=== PATIENT | male | born 1955 | race Caucasian/White ===

== ENCOUNTER → 2017-11-01 08:02 | Outpatient (CLI) | payer OTHER, SELFPAY ==
[2017-11-01 08:50] LABS: Add Manual Diff / Slide Review NO; Basophils Percent Auto 0.8 % (0-2); Hematocrit 45.3 % (41-53); Hemoglobin 15.8 g/dL (13.5-17.5); Lymphocytes Percent Auto 24.1 % (25-40); Mean Corpuscular HGB Conc 34.8 % (30-36); Mean Corpuscular Hemoglobin 32.1 PG (26-34); Mean Corpuscular Volume 92.3 fL (80-100); Monocytes Percent Auto 8.1 % (3-14); Neutrophils Absolute Auto 5400 /uL (3000-5900); Platelet Count 226 X10^3/uL (150-400); Red Blood Cell Count 4.91 X10^6/uL (4.5-5.9); Red Cell Distribution Width 13.5 % (11.6-14.8); White Blood Cell Count 8.6 X10^3/uL (4.5-11.0)
[2017-11-01 09:07] LABS: BUN Creatinine Ratio 33.8 (6-22); Blood Urea Nitrogen 27 mg/dL (9-20); Calcium 9.4 mg/dL (8.4-10.2); Carbon Dioxide 25 mmol/L (22-32); Chloride 98 mmol/L (98-107); Estimated Glomerular Filt Rate > 60.0 mL/min (>60); Glucose 305 mg/dL (80-110); HEMOLYSIS 23 (0-50); Potassium 4.3 mmol/L (3.4-5.1); Sodium 136 mmol/L (137-145)
[2017-11-01 09:14] LABS: Hemoglobin A1C% w Est Avg Glu 9.4 % (4.0-6.0)
== END ==
PROVIDERS: Visit Provider Orthopaedic Surgery Orthopaedic Surgery of the Spine
DX: M48.061 Spinal stenosis, lumbar region without neurogenic claudication (principal); Z01.818 Encounter for other preprocedural examination
CPT/HCPCS: 36415; 80048; 83036; 85025; 93005

== ENCOUNTER → 2017-12-01 08:01 | Outpatient (CLI) | payer OTHER, SELFPAY ==
[2017-12-01 09:55] LABS: Add Manual Diff / Slide Review NO; Basophils Percent Auto 0.5 % (0-2); Eosinophils Percent Auto 4.4 % (2-4); Hematocrit 43.9 % (41-53); Hemoglobin 15.2 g/dL (13.5-17.5); Lymphocytes Percent Auto 20.1 % (25-40); Mean Corpuscular HGB Conc 34.6 % (30-36); Mean Corpuscular Hemoglobin 31.9 PG (26-34); Neutrophils Absolute Auto 6200 /uL (3000-5900); Platelet Count 252 X10^3/uL (150-400); Red Blood Cell Count 4.78 X10^6/uL (4.5-5.9); Red Cell Distribution Width 13.7 % (11.6-14.8); White Blood Cell Count 9.5 X10^3/uL (4.5-11.0)
[2017-12-01 10:31] LABS: BUN Creatinine Ratio 42.5 (6-22); Blood Urea Nitrogen 51 mg/dL (9-20); Calcium 9.3 mg/dL (8.4-10.2); Carbon Dioxide 30 mmol/L (22-32); Chloride 96 mmol/L (98-107); Estimated Glomerular Filt Rate > 60.0 mL/min (>60); Glucose 124 mg/dL (80-110); HEMOLYSIS < 15 (0-50); Potassium 4.5 mmol/L (3.4-5.1); Sodium 139 mmol/L (137-145)
[2017-12-01 13:52] LABS: Hemoglobin A1C% w Est Avg Glu 9.1 % (4.0-6.0)
== END ==
PROVIDERS: Visit Provider Orthopaedic Surgery Orthopaedic Surgery of the Spine
DX: M47.26 Other spondylosis with radiculopathy, lumbar region (principal)
CPT/HCPCS: 36415; 80048; 83036; 85025

== ENCOUNTER → 2017-12-20 09:55 | Outpatient (CLI) | payer OTHER, SELFPAY ==
[2017-12-20 10:01] LABS: Bacteria Urine None Seen; RBC Urine None Seen (0-5/HPF); WBC Urine None Seen (0-5/HPF)
[2017-12-20 10:58] LABS: Appearance Urine UA CLEAR; Bilirubin Urine UA NEGATIVE (NEGATIVE); Color Urine UA YELLOW; Glucose Urine UA NEGATIVE (Normal); Ketones Urine UA NEGATIVE (NEGATIVE); Leukocyte Esterase Urine UA NEGATIVE (NEGATIVE); Nitrite Urine UA Negative (Negative); Occult Blood Urine UA NEGATIVE (Negative); Protein Urine UA NEGATIVE (Negative); Urobilinogen Urine UA 0.2 E.U./dL (0.2)
[2017-12-20 11:22] LABS: Culture Indicated Urine Cult Not Indicated; Urine Comments Microscopic Normal
== END ==
PROVIDERS: Referring Provider Family Medicine; Visit Provider Orthopaedic Surgery Orthopaedic Surgery of the Spine
DX: M47.26 Other spondylosis with radiculopathy, lumbar region (principal)
CPT/HCPCS: 36415; 81001; 83036

== ENCOUNTER 2018-01-10 06:15 | Inpatient (IN) | payer OTHER, SELFPAY ==
[2017-12-31 13:45] VITALS: BMI 41.6
[2017-12-31 14:31] VITALS: BMI 39.1
[2018-01-10] VITALS (15 sets, daily range): BP systolic 101–143; BP diastolic 40–91; PULSE 67–89; RESP 8–20; TEMP 36–37.2; O2SAT 92–97; BMI 39.1
[2018-01-10] MEDS: LACTATED RINGERS 1,000 ML 42 ML IV (07:20)
[2018-01-10] MEDS: CEFAZOLIN 2 GM/100 ML FROZ.PIGGY IV ×2 (08:14→16:08)
--- NOTE | 2018-01-10 08:40 | SUR.OPER ---
Prone on spine table, head in foam head support, padded chest and pelvic supports, gel pad at knees, lower legs supported by pillows; nipples, genitalia and toes free of pressure, arms secured on foam padded arm boards at <90 degrees abduction. Tape over blanket at thigh secured to table.
[2018-01-10] MEDS: BUPIVACAINE 0.25% W/ EPI VIAL 50 ML INJ (09:04)
[2018-01-10] MEDS: BUPIVACAINE LIPOSOME 266 MG/20 ML VIAL INJ (09:05)
--- NOTE | 2018-01-10 10:08 | SUR.OPER ---
1007 CBG taken in the OR =132. Anesthesia aware.
--- NOTE | 2018-01-10 11:09 | PM.OP.1 ---
Operative Date/Time/Diagnoses Date of procedure: 01/10/18 Time of procedure: 08:09 Pre-op diagnosis: 1. L5-S1 spondylolisthesis 2. L4-5, L5-S1 spinal stenosis 3. L4-5, L5-S1 spondylosis with radiculopathy Post-op diagnosis: same Procedure & Clinicians Procedure: 1. L5-S1 Postero-lateral and posterior interbody fusion 2. L5-S1 interbody cage placement. 3. L5-S1 decompressive laminectomy with bilateral facetecomies 4. L5-S1 Posterior non-segmental instrumentation 5. L4-5 left hemilaminectomy 6. [place] of bone marrow from iliac crest 7. Utilization of microsurgical technique and operating microscope Same procedure as scheduled: Yes Indications: Patient has been having chronic back pain and worsening lumbar radiculopathy. Patient failed multiple conservative management with worsening pain weakness and numbness in her lower extremity. Patient has been having difficulty performing activity of daily living. After discussing risks benefits of treatment options, patient elected proceed with surgery. Surgeon: Dameon Holm Breaker Layer: Chica Pringle Click Yes if Unassisted: No Anesthesia Type: General Operative Notes Closure Type: primary Specimen(s): none sent Implants & Drains: Globus revolve and Rise cage Applied: catheter Estimated Blood Loss (mL): 50 Blood products transfused: none Procedure in detail: Patient was seen in the preoperative area. Risks and benefits of the surgery was discussed with the patient. Informed consent was obtained from the patient and placed in the chart. Surgical site was marked. Patient was taken to the operative room. General anesthesia was administered. Prophylactic antibiotic was given to the patient less than 30 min before the incision was made. Patient was placed into a prone position on the Johnson table. Patient's back was then prepped and draped in the sterile fashion. Time-out was performed at this time. Using AP and lateral C-arm imaging the interval between L4-5 L5-S1 was identified and marked on patient's back. A 2 inch incision 2 in from midline was made on the left side first. The fascia was incised in line with skin incision. Globus MARS retractors was placed inside the incision and docked onto the L5 lamina. Using microsurgical technique and operating microscope, a L5 laminectomy and L5-S1 facetectomy was performed using a Kerrison rongeur. The disc space at L5-S1 was identified. And a total diskectomy was performed at L5-S1 level. The endplates were decorticated using a rasp and shaver. The total diskectomy and decortication was performed at L5-S1 level in order to to accomplish a L5-S1 fusion. The local bone from the laminectomy and facetectomy was saved for local bone grafting. After the total diskectomy and decortication was completed, Globus viacell bone graft material was combined with local bone that was harvested earlier. At this time, a separate skin is incision was made over the iliac crest. A Jamshidi needle was inserted into the iliac crest through a separate skin incision. 5 cc of bone marrow aspiration was obtained through the separate skin incision using a Jamshidi needle from the iliac crest. The bone marrow aspiration was combined with local bone and the via cell bone grafting material. The bone grafting material was placed into the L5-S1 interbody space along with a expandable cage. The cage was expanded to its maximum height using the torque limiting screwdriver. At this time the MARS retractor was redirected over the L4 lamina. Using microsurgical technique and operating microscope, a L4 heminectomy was performed using the Kerrison rongeur. The ligamentum flavum was also resected at the side of the hemilaminectomy for further decompression of the epidural space. At this time a mirror image incision was made on the right side. The fascia was incised in line with the skin incision. Globus MARS retractor was inserted and docked onto the L5-S1 posterolateral gutter. Using the power drill, posterior-lateral decortication was performed at L5-S1 level until bleeding cortical bone was identified. The remaining bone grafting material was placed into the L5-S1 posterior lateral gutter he order to accomplish posterolateral fusion at the L5-S1 level. Using the double C-arm technique, pedicle screws were placed into the L5 and S1 pedicles bilaterally. This was done by placing the Jamshidi needle into the pedicles, then placing the guidewires over the Jamshidi needle, and finally placing the cannulated screws over the guidewires bilaterally. After the pedicle screws were placed, 2 titanium rods was locked into the heads of the pedicle screws using locking caps and torque limiting screwdriver. After all the hardware was placed, and confirmed with AP and lateral C-arm imaging, the wound was then irrigated with sterile normal saline and packed with Ray-Jj gauze for 3 min to accomplish hemostasis. After the gauze was removed the deep fascia was closed with #1 Vicryl suture. The subcutaneous layer was closed with 2-0 Vicryl. The skin was closed with skin cathryn. Patient tolerated the procedure well. There were no complications. Complications: none
--- NOTE | 2018-01-10 11:15 | P.OP_ITS ---
Operative Date/Time/Diagnoses Date of procedure: 01/10/18 Time of procedure: 08:09 Pre-op diagnosis: 1. L5-S1 spondylolisthesis 2. L4-5, L5-S1 spinal stenosis 3. L4-5, L5-S1 spondylosis with radiculopathy Post-op diagnosis: same Procedure & Clinicians Procedure: 1. L5-S1 Postero-lateral and posterior interbody fusion 2. L5-S1 interbody cage placement. 3. L5-S1 decompressive laminectomy with bilateral facetecomies 4. L5-S1 Posterior non-segmental instrumentation 5. L4-5 left hemilaminectomy 6. [place] of bone marrow from iliac crest 7. Utilization of microsurgical technique and operating microscope Same procedure as scheduled: Yes Indications: Patient has been having chronic back pain and worsening lumbar radiculopathy. Patient failed multiple conservative management with worsening pain weakness and numbness in her lower extremity. Patient has been having difficulty performing activity of daily living. After discussing risks benefits of treatment options, patient elected proceed with surgery. Surgeon: Dameon Holm Manifold Builder: Chica Pringle Click Yes if Unassisted: No Anesthesia Type: General Operative Notes Closure Type: primary Specimen(s): none sent Implants & Drains: Globus revolve and Rise cage Applied: catheter Estimated Blood Loss (mL): 50 Blood products transfused: none Procedure in detail: Patient was seen in the preoperative area. Risks and benefits of the surgery was discussed with the patient. Informed consent was obtained from the patient and placed in the chart. Surgical site was marked. Patient was taken to the operative room. General anesthesia was administered. Prophylactic antibiotic was given to the patient less than 30 min before the incision was made. Patient was placed into a prone position on the Johnson table. Patient's back was then prepped and draped in the sterile fashion. Time- out was performed at this time. Using AP and lateral C-arm imaging the interval between L4-5 L5-S1 was identified and marked on patient's back. A 2 inch incision 2 in from midline was made on the left side first. The fascia was incised in line with skin incision. Globus MARS retractors was placed inside the incision and docked onto the L5 lamina. Using microsurgical technique and operating microscope, a L5 laminectomy and L5-S1 facetectomy was performed using a Kerrison rongeur. The disc space at L5-S1 was identified. And a total diskectomy was performed at L5- S1 level. The endplates were decorticated using a rasp and shaver. The total diskectomy and decortication was performed at L5-S1 level in order to to accomplish a L5-S1 fusion. The local bone from the laminectomy and facetectomy was saved for local bone grafting. After the total diskectomy and decortication was completed, Globus viacell bone graft material was combined with local bone that was harvested earlier. At this time, a separate skin is incision was made over the iliac crest. A Jamshidi needle was inserted into the iliac crest through a separate skin incision. 5 cc of bone marrow aspiration was obtained through the separate skin incision using a Jamshidi needle from the iliac crest. The bone marrow aspiration was combined with local bone and the via cell bone grafting material. The bone grafting material was placed into the L5-S1 interbody space along with a expandable cage. The cage was expanded to its maximum height using the torque limiting screwdriver. At this time the MARS retractor was redirected over the L4 lamina. Using microsurgical technique and operating microscope, a L4 heminectomy was performed using the Kerrison rongeur. The ligamentum flavum was also resected at the side of the hemilaminectomy for further decompression of the epidural space. At this time a mirror image incision was made on the right side. The fascia was incised in line with the skin incision. Globus MARS retractor was inserted and docked onto the L5-S1 posterolateral gutter. Using the power drill, posterior- lateral decortication was performed at L5-S1 level until bleeding cortical bone was identified. The remaining bone grafting material was placed into the L5-S1 posterior lateral gutter he order to accomplish posterolateral fusion at the L5- S1 level. Using the double C-arm technique, pedicle screws were placed into the L5 and S1 pedicles bilaterally. This was done by placing the Jamshidi needle into the pedicles, then placing the guidewires over the Jamshidi needle, and finally placing the cannulated screws over the guidewires bilaterally. After the pedicle screws were placed, 2 titanium rods was locked into the heads of the pedicle screws using locking caps and torque limiting screwdriver. After all the hardware was placed, and confirmed with AP and lateral C-arm imaging, the wound was then irrigated with sterile normal saline and packed with Ray-Jj gauze for 3 min to accomplish hemostasis. After the gauze was removed the deep fascia was closed with #1 Vicryl suture. The subcutaneous layer was closed with 2-0 Vicryl. The skin was closed with skin cathryn. Patient tolerated the procedure well. There were no complications. Complications: none
--- NOTE | 2018-01-10 11:16 | DI.RAD.S_ITS ---
PROCEDURE: XR LUMBAR SPINE 2-3V INDICATIONS: L5-S1 TLIF TECHNIQUE: 2 intraoperative fluoroscopic views of the lumbar spine were acquired. COMPARISON: None. FINDINGS: Bones: AP and lateral fluoroscopic images of lower lumbar spine shows transpedicular fusion of L5 and S1 vertebral bodies with intervertebral metallic spacer placement at L5-S1 level. Grade 1 anterolisthesis of L5 on S1 is seen. No gross acute compression fracture is noted. Soft tissues: Overlying bowel gas pattern is normal. No suspicious soft tissue calcifications. IMPRESSION: Intraoperative fluoroscopic images of lower lumbar spine shows transpedicular fusion of L5 and S1 vertebral bodies. Dictated by: Rodrigo Howard M.D. on 01/10/2018 at 11:32 Approved by: Rodrigo Howard M.D. on 01/10/2018 at 11:34
[2018-01-10] MEDS: fentaNYL 100 MCG/2 ML INJ IV ×2 (11:30→11:54)
--- NOTE | 2018-01-10 11:37 | SUR.PHASEI ---
glucose 168
[2018-01-10] MEDS: SODIUM CHLORIDE 0.9% 1,000 ML 100 ML IV ×2 (12:49→23:18)
[2018-01-10] MEDS: INSULIN ASPART 100 UNIT/ML INSULN PEN SUBCUT ×3 (12:50→20:06)
[2018-01-10] MEDS: OXYCODONE IR 5 MG TABLET 10 MG PO ×2 (12:51→20:00)
--- NOTE | 2018-01-10 13:05 | PC.ADMIT ---
Admission Note: Patient arrived to room 102 from PACU at 1220. Alert and oriented x3. Oxygen sats 95% on 2L NC. Restless in bed stating I just can't get comfortable, requesting to get up. Assisted up to chair, logrolled well with instruction and is now sitting up, reports feeling better. Oxycodone administered for pt report of 4-5/10 pain. Pt ate crackers and water prior to oxycodone and is now eating lunch. Denies nausea. Denies numbness to BLEs, strong pulses. Dressing to mid-back is C/D/I. No void since prior to surgery, urinal at bedside. , Shannan, at bedside. Call light within reach, instructed to use prior to make needs known. The patient,Klaus Mendoza,62 y/o, was given written information regarding hospital policies, unit procedures and contact persons. Patient's smoking status: Current some day smoker. Vital Signs - 8 hr 01/10/18 07:09 01/10/18 11:11 01/10/18 11:16 Temperature 96.9 F L 97.8 F Pulse Rate 79 77 78 Respiratory Rate 20 14 8 L Blood Pressure 143/82 H 118/67 103/60 Pulse Oximetry 95 94 94 01/10/18 11:21 01/10/18 11:36 01/10/18 11:41 Temperature 96.9 F L Pulse Rate 76 77 75 Respiratory Rate 11 L 17 14 Blood Pressure 101/56 L 104/53 L 117/91 H Pulse Oximetry 96 92 95 01/10/18 11:50 01/10/18 12:00 01/10/18 12:10 Temperature 96.8 F L Pulse Rate 86 83 84 Respiratory Rate 13 12 17 Blood Pressure 105/58 L 101/61 121/66 Pulse Oximetry 93 96 97
--- NOTE | 2018-01-10 14:48 | CM.DANOTE ---
Attempted to completed bedside assessment with patient but patient was in surgery during the morning and sleeping in the afternoon. RN requested SW not wake patient. Chart Review: Pre-op notes show that patient resides with his spouse and live in a one floor house. Patient did plan on discharging home with HH. HH agency was not listed. Patient is pending PT/OT eval which will assist SW with further discharge needs. Plan: Pending bedside assessment and PT/OT evals. SW to follow.
--- NOTE | 2018-01-10 15:10 | PM.PREOP ---
Pre-operative Note Interval Note Pre-op Check: Yes History & Physical Reviewed by Physician, Yes Exam Performed and Yes History & Physical exam performed today by Physician Changes: No
[2018-01-10] MEDS: METFORMIN HCL 500 MG TABLET 1000 MG PO (16:48)
[2018-01-10] MEDS: glipiZIDE 5 MG TABLET PO (20:01)
[2018-01-10] MEDS: DOCUSATE 100 MG CAPSULE PO (20:01)
[2018-01-10] MEDS: LOVASTATIN 20 MG TABLET 40 MG PO (20:01)
[2018-01-10] MEDS: SENNOSIDES 8.6 MG TABLET 17.2 MG PO (20:02)
[2018-01-10] MEDS: INSULIN GLARGINE 100 UNIT/ML 3ML PEN 30 UNIT SUBCUT (20:05)
[2018-01-11] VITALS (7 sets, daily range): BP systolic 127–146; BP diastolic 41–70; PULSE 76–89; RESP 16–20; TEMP 36.6–37.3; O2SAT 93–99
[2018-01-11] MEDS: CEFAZOLIN 2 GM/100 ML FROZ.PIGGY IV (00:24)
[2018-01-11] MEDS: OXYCODONE IR 5 MG TABLET 10 MG PO ×4 (01:06→18:47)
[2018-01-11] MEDS: hydrOXYzine pamoate 25 MG CAPSULE PO ×2 (06:04→18:48)
--- NOTE | 2018-01-11 06:41 | PC.NURSE ---
Patient slept half the night in bed, other half in chair, log rolling, not bending or twisting at waist. Medicated with 10mg Percolone and PO Vistaril. Says legs are still numb but can stand without difficulty. Saline locked in am, adaquate PO intake without N/V. VSS.
[2018-01-11] MEDS: INSULIN ASPART 100 UNIT/ML INSULN PEN SUBCUT ×4 (08:14→20:44)
[2018-01-11] MEDS: METFORMIN HCL 500 MG TABLET 1000 MG PO ×2 (08:14→16:54)
[2018-01-11] MEDS: hydroCHLOROthiazide 25 MG TABLET PO (08:15)
[2018-01-11] MEDS: glipiZIDE 5 MG TABLET PO ×2 (08:15→20:40)
[2018-01-11] MEDS: FUROSEMIDE 20 MG TABLET PO (08:15)
[2018-01-11] MEDS: DOCUSATE 100 MG CAPSULE PO ×2 (08:15→20:40)
[2018-01-11] MEDS: INSULIN GLARGINE 100 UNIT/ML 3ML PEN 30 UNIT SUBCUT ×2 (08:16→20:44)
--- NOTE | 2018-01-11 10:35 | PT.IIE ---
Current Diagnoses Spondylolisthesis, lumbosacral region (01/10/18) Other spondylosis with radiculopathy, lumbar region (01/10/18) Spinal stenosis, lumbar region without neurogenic claudication (01/10/18) Surgery Performed Operation Date: 01/10/18 07:45 Actual Procedures p L4-5 Left Hemilaminectomy, L5-S1 TLIF w/Posterior Instru. 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) Other spondylosis with radiculopathy, lumbar region (Acute) Spinal stenosis, lumbar region without neurogenic claudication (Acute) Spondylolisthesis, lumbar region (Acute) Physical Therapy Inpatient Evaluation/Re-Eval M1 PT/OT-IP Prior Functional Status Start: 01/11/18 11:28 Freq: NEEDED Status: Active Protocol: Document 01/11/18 10:35 AB (Rec: 01/11/18 11:43 AB [id number]) Medical Review Prior Functional Status Medical History Reviewed Yes Communication able to make needs known Mobility and Gait stated that he is independent with all mobilities and ambulation without AD Social History Household Members spouse Living Arrangements House Number of Floors (Floors) One Floor Number of Stairs To Enter/Railing? has 2 steps to enter withh bilateral rails Home Environment High Toilet Walk in Shower Tub/Shower Home Equipment Front Wheel Walker Straight Cane Shower Seat with Backrest Grab Bars In Shower Employment Status Retired M2 PT-IP Current Condition Start: 01/11/18 11:28 Freq: NEEDED Status: Active Protocol: Document 01/11/18 10:35 AB (Rec: 01/11/18 11:43 AB [id number]) Physical Therapy Current Condition Current Condition Evaluation Date 01/11/18 Treatment Diagnosis s/p L5S1 fusion and lami, L4- L5 L hemilaminectomy; difficulties in walking Onset Date 01/10/18 Precautions Lumbar Precautions Log Roll No Twisting Limit Bending Lifting Restriction of 10 lbs Gait Belt above Incisional Area M3 PT-IP Subjective Start: 01/11/18 11:28 Freq: NEEDED Status: Active Protocol: Document 01/11/18 10:35 AB (Rec: 01/11/18 11:43 AB [id number]) Subjective Physical Therapy Visit Type Type Initial Evaluation Visit Start Time 10:35 Visit Stop Time 11:07 Total Visit Minutes 32 Number of X RAY SERVICE TECHNICIAN Visits 0 Therapy Pain Assessment Pain When Pain Assessed At Rest Pain Present Pain Present Pain Reported Location lower back Intensity 25 Scale Used Numeric (1 - 10) Pain Management Techniques Apply Cold Re-positioning Timing of Activity with Medications M4 PT-IP Mobility and Gait Start: 01/11/18 11:28 Freq: NEEDED Status: Active Protocol: Document 01/11/18 10:35 AB (Rec: 01/11/18 11:43 AB [id number]) PT-Bed Mobility Assessment Rolling Type of Rolling Log Rolling Level of Assist Moderate Assistance Supine to Sit Supine to Sit Maximum Assistance Bedrails Sit to Supine Sit to Supine Moderate Assistance Bedrails PT-Transfer Assessment Sit to and From Stand Sit to and from Stand Moderate Assistance Equipment Transfer Assistive Device Gait Belt Front Wheeled Walker Orthotic/Prosthetic Devices or Brace: No Transfers Transfer Destination Bed Chair Transfer Technique pt ambulated using FWW Transfer Ability Level of Assist Minimal Assistance Gait Assessment Gait Gait Assistance Required: Minimum Assistance Distance (Feet) (feet) 10 Able to Maintain Weight Bearing Status Yes During Gait Assistive Devices Assistive Device Gait Belt Front Wheeled Walker Orthotic/Prosthetic Devices or Brace: No Gait Deviations General Gait Pattern Antalgic Decreased Stride Length Decreased Feet Clearance Wide Based Gait Factors Limiting Gait Function Factors Limiting Gait Function Decreased Activity Tolerance Decreased Strength Limited Range of Motion Pain Poor Balance Poor Safety Awareness PT-Balance Assessment Sitting Balance and Reactions Static Sitting Balance Ability Good Dynamic Sitting Balance Ability Good Standing Balance and Reactions Static Standing Balance Ability Fair Dynamic Standing Balance Ability Fair Device Used FWW M5 PT-IP Objective Assessments Start: 01/11/18 11:28 Freq: NEEDED Status: Active Protocol: Document 01/11/18 10:35 AB (Rec: 01/11/18 11:43 AB [id number]) Orientation Orientation/Cognition Level of Alertness Alert Orientation Name Age Birthday Month Date Year Day of Week Place Situation Safety Awareness Understands Safety Issues Gross Range of Motion Lower Extremity ROM Assessment Within Functional Limits Strength Lower Extremity Strength Assessment Bilaterally Impaired Hip 3+/5 Knee 4-/5 M6 PT-IP Treatment Start: 01/11/18 11:28 Freq: NEEDED Status: Active Protocol: Document 01/11/18 10:35 AB (Rec: 01/11/18 11:43 AB [id number]) Physical Therapy Treatment Education Education Provided Precautions Weight Bearing Status Post-Op Packet Safety M7 PT-IP Assessment and Plan Start: 01/11/18 11:28 Freq: NEEDED Status: Active Protocol: Document 01/11/18 10:35 AB (Rec: 01/11/18 11:43 AB [id number]) PT Summary Assessment and Plan Potential Rehabilitation Potential Good Status of Condition at Evaluation Evolving Summary Impairments Pain ROM Strength Balance Coordination Sensation Bed Mobility Transfers Gait Activity Tolerance Assessment Summary pt requiring mod A with sit to stand and max A for supine to sit. pt c/o increase pain with mobility. d/c plan depending on progress but pt plans to go home with spouse to assist him. Goals Bed Mobility Goal Standby Assistance Transfer Goal Standby Assistance Gait Goal Standby Assistance Gait Distance 150 Other Goals up/down 2 steps with bilateral rails Frequency of Treatment Frequency Of Treatment Twice a Day Treatment Plan Physical Therapy Treatment Plan Bed Mobility Training Transfer Training Gait Training Therapeutic Exercise Balance Retraining Post Op Education Discharge Planning Hot or Cold Pack Neuromuscular Re-ed Coordination Retraining Manual Therapy Other Recommendations and Next Treatment ambulation Focus Recommendations To Nursing Amount of Assist Needed 1 Person Assist Discharge Recommendations PT Discharge Recommendations Home with 24/ Assist SNF Rehab
--- NOTE | 2018-01-11 12:04 | OT.IP.EVAL ---
Current Diagnoses Spondylolisthesis, lumbosacral region (01/10/18) Other spondylosis with radiculopathy, lumbar region (01/10/18) Spinal stenosis, lumbar region without neurogenic claudication (01/10/18) Surgery Performed Operation Date: 01/10/18 07:45 Actual Procedures p L4-5 Left Hemilaminectomy, L5-S1 TLIF w/Posterior Instru. - Dameon Holm MD Past Medical History (Last Updated 12/31/17 @ 15:05 by Cristiana Silva, RN) Diabetes mellitus, type 2 (Acute) Edema (Acute) History of headache (Acute) Impaired vision (Acute) No natural teeth (Acute) Other spondylosis with radiculopathy, lumbar region (Acute) Spinal stenosis, lumbar region without neurogenic claudication (Acute) Spondylolisthesis, lumbar region (Acute) Surgical History (Last Updated 12/31/17 @ 15:05 by Cristiana Silva RN) H/O eye surgery (Acute) History of hand surgery (Acute) History of total cystectomy (Acute) Occupational Therapy Inpatient Evaluation/Re-Eval M1 PT/OT-IP Prior Functional Status Start: 01/11/18 11:28 Freq: NEEDED Status: Active Protocol: Document 01/11/18 12:04 MATTI (Rec: 01/11/18 12:26 PJ [id number]) Medical Review Prior Functional Status Medical History Reviewed Yes Diet/Fluid Consistency Regular Communication WNL Mobility and Gait stated that he is independent with all mobilities and ambulation without AD Activities of Daily Living and IADL's Pt independent with self care. 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 They live at [place]. 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 He drives 10 hrs/ day for 2-4 weeks at a time. Social History Household Members spouse Living Arrangements House Number of Floors (Floors) One Floor Number of Stairs To Enter/Railing? 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 M2 OT-IP Current Condition Start: 01/11/18 12:12 Freq: Status: Active Protocol: Document 01/11/18 12:04 PJM (Rec: 01/11/18 12:26 PJM [id number]) Occupational Therapy Current Condition Current Condition Evaluation Date 01/11/18 Post Operative Precautions Lumbar Precautions Log Roll No Twisting Limit Bending Lifting Restriction of 10 lbs Gait Belt above Incisional Area M3 OT- IP Subjective and Pain Start: 01/11/18 12:12 Freq: Status: Active Protocol: Document 01/11/18 12:04 PJM (Rec: 01/11/18 12:26 PJM [id number]) OT- Subjective Occupational Therapy Visit Type Type Initial Evaluation Visit Start Time 11:35 Visit Stop Time 12:04 Total Visit Minutes 29 Notes Pt's here for education this session. has had lumbar surgery and is familiar with precautions. Pt very drowsy from pain meds; discussed with RN. Occupational Therapy Visit Comments Patient Comments I am pretty comfortable just sitting here. Patient/Caregiver Goals to go home, return to work when able OT Pain Assessment Pain When Pain Assessed At Rest Pain Present Pain Present Pain Reported Location lower back Intensity 1 Scale Used Numeric (1 - 10) Description Aching Pain Behaviors Guarding M4 OT- IP ADL's Start: 01/11/18 12:12 Freq: Status: Active Protocol: Document 01/11/18 12:04 PJM (Rec: 01/11/18 12:26 PJM [id number]) OT [id number] General Evaluation Diet Level for Self-Feeding regular Self-Feeding Ability Independent OT ADL-Grooming General Evaluation Grooming Ability Standby Assistance Areas Needing Assistance Retrieving/Set-up of Grooming Items Face Washing OT ADL-Oral Care Comments Oral Care Comments Pt declined oral care and states he has no teeth. OT ADL-Dressing General Eval Lower Body Dressing Ability Maximum Assistance Areas Needing Assistance Socks Comments OT Dressing Comments Began education re: use of almond cutting machine tender to doff socks and sock aid to don them. Pt can use 's sock aid, long shoe horn. to look for almond cutting machine tender at home. OT ADL-Toileting Comments OT Toileting Comments pt declined this session; to be assessed OT ADL-Bathing Comments OT Bathing Comments to be assessed as activity tolerance improves M5 OT- IP IADL's Start: 01/11/18 12:12 Freq: Status: Active Protocol: Document 01/11/18 12:04 PJM (Rec: 01/11/18 12:26 PJM [id number]) OT-Instrumental Activities of Daily Living Deficits IADL Deficits Identified Deficits Home Safety Awareness Awareness of Need for Assistance at Home Good Awareness Ability to Problem Solve Emergency Able to Problem Solve Situations Medication Management Medication Management Caregiver Provides Supervision Money Management Money Management No Deficits Identified Meal Preparation Meal Preparation Caregiver Provides Assist Mechanical Process Engineer Mechanical Process Engineer Caregiver Provides Assist Driving Driving Caregiver Provides Assist Driving Comments until pt able M6 OT- IP Functional Cognition Start: 01/11/18 12:12 Freq: Status: Active Protocol: Document 01/11/18 12:04 PJM (Rec: 01/11/18 12:26 PJM NR) Cognitive Factors Limiting Selfcare Function Cognitive Ability Level of Alertness Drowsy Patient Orientation Name Age Birthday Month Date Year Day of Week Place Situation Attention Span Ability Unable to Focus Unable to Sustain Attention Ability to Follow Commands Able to Follow One Step Commands Safety Awareness Decreased Recall of Precautions Problem Solving Ability Needs Assist to Identify Solutions Cognitive Comments Cognitive Assessment Comments Pt drowsy from pain meds; RN to adjust dosage to increase alertness. OT- Vision and Hearing OT- Hearing Assessment OT- Hearing Assessment WFL OT- Vision Assessment Visual Acuity WFL Glasses For Reading Vision Assessment Comments Pt denies any recent vision changes. M7 OT- IP Mobility and Balance Start: 01/11/18 12:12 Freq: Status: Active Protocol: Document 01/11/18 12:04 PJEvelin (Rec: 01/11/18 12:26 PJ [id number]) OT- Bed Mobility Assessment Rolling Type of Rolling Log Rolling OT-Transfer Assessment Comments Mobility Comments Pt seen up in chair this session. See P.T. notes. OT- Gait Assessment Comments Gait Ability Comments Pt seen up in chair this session. See P.T. notes. OT- Balance Assessment Comments Other Balance Tests/Deviations/Treatment Pt seen up in chair this : session. See P.T. notes. M8 OT- IP Objective Assessments Start: 01/11/18 12:12 Freq: Status: Active Protocol: Document 01/11/18 12:04 PJM (Rec: 01/11/18 12:26 PJ [id number]) OT Gross Range of Motion Upper Extremity Range of Motion Assessment Within Functional Limits OT Strength Upper Extremity Strength Assessment Within Functional Limits OT- Coordination Assessment Comments Coordination Comments BUE WFL OT-Muscle Tone Assessment Muscle Tone WNL Yes OT Sensation Assessment Comments Summary Comments Pt denies deficits in BUE's Edema Edema Present Edema Comments Min edema BLE's M9 OT- IP Assessment and Plan Start: 01/11/18 12:12 Freq: Status: Active Protocol: Document 01/11/18 12:04 PJM (Rec: 01/11/18 12:26 PJM [id number]) OT Summary Assessment and Plan Potential Rehabilitation Potential Good Analytic Complexity at Evaluation Low Summary OT Impairments Pain Functional Mobility Grooming Dressing Toileting Bathing Toilet Transfers Shower Transfers Assessment Summary Low complexity OT assessment completed with emphasis on self care skills within new lumbar spine precautions. Pt very drowsy this session with decreased sustained attention, but here for education and is familiar with precautions from her own lumbar surgery. She can provide 24 hr assist at discharge. Pt presents with performance deficits in all functional mobility, transfers , standing grooming, lower body dressing, bathing and toileting. Pt/ both strongly prefer home discharge . Goals Grooming Goal Independent Dressing Goal Standby Assistance Long Handled Shoe Horn Retail Account Executive Sock Aid Toileting Goal Standby Assistance Toilet Paper Aid Bathing Goal Standby Assistance Hand Held Shower Sprayer Long Handled Sponge or [place] Toilet Transfer Goal Independent Shower Transfer Goal Standby Assistance Walk-in Shower Shower Chair Patient/Caregiver Education Goal Demonstrate Post-Op Precautions Caregiver Independent Assisting Patient OT-Other Goals Grooming to be done standing with good body mechanics. Days to Meet Goals 2 Frequency of Treatment Frequency Of Treatment Once a Day Treatment Plan OT Treatment Plan ADL Training Functional Mobility Patient/Family Education Discharge Planning Discharge Recommendations OT Discharge Recommendations Home with 23/11 Assist Home Equipment Needs almond cutting machine tender, toilet paper aid
--- NOTE | 2018-01-11 13:05 | PM.PNPO.1 ---
Subjective Date Patient Seen: 01/11/18 Time Patient Seen: 13:05 Interval history: Pt is s/p L4-5 hemilaminectomy/L5-S1 by Dr. Holm. PD 1. Patient is sitting in chair having his lunch. Complains that his legs hurt. Hx of DM and diabetic neuropathy still has numbness in both feet. Pain tolerable with oxycodone 10 mg every 3-4 hours. Has ambulated a little with physical therapy. Has not been passing gas or had a bowel movement yet. Plan is to be discharged home when medically stable. Exam Vital Signs (past 8 hours): - 01/11/18 05:30 01/11/18 08:01 01/11/18 08:28 Temperature 98.5 F 98.6 F Pulse Rate 82 87 Respiratory Rate 17 18 Blood Pressure 134/55 L 146/70 H Pulse Oximetry 97 99 99 01/11/18 12:11 Temperature 98 F Pulse Rate 87 Respiratory Rate 20 Blood Pressure 128/55 L Pulse Oximetry 98 Oxygen Delivery Method Nasal Cannula Oxygen Flow Rate 0 Narrative Exam Narrative: Patient sitting in chair. Back dressings clean, dry and intact. Bilateral calves soft and nontender. 4/5 Quad strength emigdio. 5/5 Ankle strength Emigdio. Numbness in both feet. Patient alert orient x3. Objective Labs Labs: Laboratory Results - last 24 hr 01/10/18 12:25 Nasal Screen MRSA (PCR) Negative for mrsa Assessment & Plan Post-op (1) Diabetes mellitus: Problem details: Continue oral diabetic medications and insulin. Current Visit: Yes Status: Acute Postoperative Procedures Operation Date: 01/10/18 07:45 Actual Procedures Side Surgeon p L4-5 Left Hemilaminectomy, L5-S1 TLIF w/Posterior Instru. Dameon Holm MD Postop day 1. Patient complaining of pain in both legs and wound give him 1 dose of dexamethasone 10 mg. Patient is diabetic but his glucose levels have been in good range. Continue oxycodone 10 mg of Vistaril as needed for pain. Continue physical therapy. Continue stool softener for constipation but will order milk of Mag to take daily instead of as needed. Bending lifting and twisting precautions. Possible discharge home in few days. Quality VTE Deep Vein Thrombosis/Pulmonary Embolism Present on Admission: No
[2018-01-11] MEDS: DEXAMETHASONE 10 MG/ML VIAL IV (13:18)
--- NOTE | 2018-01-11 15:17 | PT.IPTN ---
Current Diagnoses Type 2 diabetes mellitus without complications (01/10/18) Spondylolisthesis, lumbosacral region (01/10/18) Other spondylosis with radiculopathy, lumbar region (01/10/18) Spinal stenosis, lumbar region without neurogenic claudication (01/10/18) Surgery Performed Operation Date: 01/10/18 07:45 Actual Procedures p L4-5 Left Hemilaminectomy, L5-S1 TLIF w/Posterior Instru. - Dameon Holm MD Physical Therapy Treatment Note M2 PT-IP Current Condition Start: 01/11/18 11:28 Freq: NEEDED Status: Active Protocol: Document 01/11/18 10:35 AB (Rec: 01/11/18 11:43 AB [id number]) Physical Therapy Current Condition Current Condition Evaluation Date 01/11/18 Treatment Diagnosis s/p L5S1 fusion and lami, L4- L5 L hemilaminectomy; difficulties in walking Onset Date 01/10/18 Precautions Lumbar Precautions Log Roll No Twisting Limit Bending Lifting Restriction of 10 lbs Gait Belt above Incisional Area M3 PT-IP Subjective Start: 01/11/18 11:28 Freq: NEEDED Status: Active Protocol: Document 01/11/18 15:17 AB (Rec: 01/11/18 16:22 AB [id number]) Subjective Physical Therapy Visit Type Type Treatment Note Visit Start Time 15:17 Visit Stop Time 15:41 Total Visit Minutes 34 Number of SOFT SUGAR SUPERVISOR Visits 0 Physical Therapy Visit Comments Patient Comments pt agreeable to do therapy Therapy Pain Assessment Pain When Pain Assessed At Rest Pain Present Pain Present Pain Reported Location lower back Intensity 6 Scale Used Numeric (1 - 10) Pain Management Techniques Re-positioning Timing of Activity with Medications M4 PT-IP Mobility and Gait Start: 01/11/18 11:28 Freq: NEEDED Status: Active Protocol: Document 01/11/18 15:17 AB (Rec: 01/11/18 16:22 AB [id number]) PT-Transfer Assessment Sit to and From Stand Sit to and from Stand Moderate Assistance 1 Person Assistance Use of Upper Extremities Equipment Transfer Assistive Device Gait Belt Front Wheeled Walker Orthotic/Prosthetic Devices or Brace: No Gait Assessment Gait Gait Assistance Required: Minimum Assistance Distance (Feet) (feet) 75 Assistive Devices Assistive Device Gait Belt Front Wheeled Walker Orthotic/Prosthetic Devices or Brace: No Gait Deviations General Gait Pattern Antalgic Decreased Stride Length Decreased Feet Clearance Wide Based Gait Factors Limiting Gait Function Factors Limiting Gait Function Decreased Activity Tolerance Decreased Strength Difficulty Following Directions Limited Range of Motion Pain Poor Balance Poor Safety Awareness M5 PT-IP Objective Assessments Start: 01/11/18 11:28 Freq: NEEDED Status: Active Protocol: Document 01/11/18 10:35 AB (Rec: 01/11/18 11:43 AB [id number]) Orientation Orientation/Cognition Level of Alertness Alert Orientation Name Age Birthday Month Date Year Day of Week Place Situation Safety Awareness Understands Safety Issues Gross Range of Motion Lower Extremity ROM Assessment Within Functional Limits Strength Lower Extremity Strength Assessment Bilaterally Impaired Hip 3+/5 Knee 4-/5 M6 PT-IP Treatment Start: 01/11/18 11:28 Freq: NEEDED Status: Active Protocol: Document 01/11/18 15:17 AB (Rec: 01/11/18 16:22 AB [id number]) Physical Therapy Treatment Education Education Provided Precautions Safety M7 PT-IP Assessment and Plan Start: 01/11/18 11:28 Freq: NEEDED Status: Active Protocol: Document 01/11/18 15:17 AB (Rec: 01/11/18 16:22 AB [id number]) PT Summary Assessment and Plan Potential Rehabilitation Potential Good Summary Impairments Pain ROM Strength Balance Cognition Bed Mobility Transfers Gait Activity Tolerance Progress Towards Goals Slow Progress due to Pain Slow Progress due to Activity Tolerance Assessment Summary pt progressing with ambulation but continues to require mod A with sit to stand and min A with ambulation using FWW. caregiver training will be conducted when appropriate as well as stair training. Goals Bed Mobility Goal Standby Assistance Transfer Goal Standby Assistance Gait Goal Standby Assistance Gait Distance 150 Other Goals up/down 2 steps with bilateral rails Frequency of Treatment Frequency Of Treatment Twice a Day Treatment Plan Physical Therapy Treatment Plan Bed Mobility Training Transfer Training Gait Training Therapeutic Exercise Balance Retraining Post Op Education Discharge Planning Hot or Cold Pack Neuromuscular Re-ed Coordination Retraining Manual Therapy Other Recommendations and Next Treatment ambulation Focus Recommendations To Nursing Amount of Assist Needed 1 Person Assist Discharge Recommendations PT Discharge Recommendations Home with 23/11 Assist SNF Rehab
--- NOTE | 2018-01-11 15:34 | CM.DPC ---
DCP/Continued: Attempted to meet with patient 2x today. Patient has been with therapy both times PT/OT. Currently it is anticipated that patient will d/c home when medically stable. P: BEHAVIORAL HEALTH CARE COORDINATOR to follow up to determine if patient/spouse have any d/c planning needs prior to discharge. CECILLE Gill
[2018-01-11] MEDS: LOVASTATIN 20 MG TABLET 40 MG PO (20:41)
[2018-01-11] MEDS: SENNOSIDES 8.6 MG TABLET 17.2 MG PO (20:41)
[2018-01-11] MEDS: MAGNESIUM HYDROXIDE 30 ML UDC PO (20:41)
--- NOTE | 2018-01-11 23:53 | PC.NURSE ---
Addendum entered by Funmi Wharton R.N. 01/12/18 06:21: Awake watching TV. States pain is now 7/10 so medicated with Oxycodone. Original Note: Addendum entered by Funmi Wharton R.N. 01/12/18 03:41: Provided Tylenol for 1/10 pain as states he knows when he gets up it's going to hurt. Now up to bathroom with walker and SBA and did very well. Passed flatus but no BM and voided unmeasured amount. States that went better than has in past. Denied need for any additional pain meds. Original Note: Patient is alert and oriented. Breath sounds CTA with RA sat of 96%. HRR. Denies nausea. Has BT but denies passing flatus. Abdomen is soft and distended. Denies dysuria, frequency, urgency or incontinence. Currently up in chair; reclined back. Denies any pain until he moves and then states pain is 5/10 but declines pain medication and/or ice pack. Dressing to back intact with shadow drainage noted. Chronic bilateral LE neuropathy. Wearing footie SCD's. Did score high on fall risk assessment, but patient is oriented and verbalizes agreement to call for assist when getting up so alarm is not being utilized at this time.
[2018-01-12 02:55] VITALS: BP 131/62; PULSE 69; RESP 17; TEMP 36.6; O2SAT 95
[2018-01-12] MEDS: ACETAMINOPHEN 325 MG TABLET 650 MG PO (03:06)
[2018-01-12] MEDS: OXYCODONE IR 5 MG TABLET 10 MG PO ×2 (06:20→15:40)
[2018-01-12 07:35] VITALS: BP 115/62; PULSE 62; RESP 16; TEMP 36.6; O2SAT 98
--- NOTE | 2018-01-12 07:57 | PM.PNPO.1 ---
Subjective Date Patient Seen: 01/12/18 Time Patient Seen: 07:30 Interval history: Post op day 2 status post L4-L5 left Hemilaminectomy, L5-S1 TLIF w/Posterior Instrumentation with Dr. Holm. Patient is sitting upright in chair comfortably. He reports that his pain is manageable at this time on oxy 10mg. Patient reports pain in legs bilaterally has resolved. Patients reports that he has still not had a bowel movement since post op. Patient denies chest pain, SOB, fever, chills, nausea or vomiting. Patient reports that he had difficulty with PT yesterday due to pain. Patient reports that his is home to assist him. Overall patient is doing much better. Exam Vital Signs (past 8 hours): - 01/12/18 02:55 Temperature 97.8 F Pulse Rate 69 Respiratory Rate 17 Blood Pressure 131/62 Pulse Oximetry 95 Oxygen Delivery Method Room Air Oxygen Flow Rate 0 Narrative Exam Narrative: Patient is AOx3. Patient appears to be in no acute distress. Patient lumbar dressing is intact with minimal drainage. Dorsalis pedis and radial pulses are 2+ and symmetric. Sensation to LE intact with light touch bilaterally. Muscle strength 5/5 in plantar flexion, dorsiflexion and job honer bilaterally. No neurological deficit noted. DVT compression device intact bilaterally. Calfs are soft, non tender and compressible. Assessment & Plan Post-op Postoperative Procedures Operation Date: 01/10/18 07:45 Actual Procedures Side Surgeon p L4-5 Left Hemilaminectomy, L5-S1 TLIF w/Posterior Instru. Dameon Holm MD Postoperative day: 2 Postoperative status: doing well Postoperative plan: routine post-op care Postoperative plan narrative: Continue mobilizing with PT. Continue DVT prophylaxis. Patient likely to be discharged home today pending PT assessment. Time Spent With Patient less than 15 minutes Quality VTE Deep Vein Thrombosis/Pulmonary Embolism Present on Admission: No
[2018-01-12] MEDS: FUROSEMIDE 20 MG TABLET PO (08:54)
[2018-01-12] MEDS: glipiZIDE 5 MG TABLET PO (08:54)
[2018-01-12] MEDS: DOCUSATE 100 MG CAPSULE PO (08:54)
[2018-01-12] MEDS: METFORMIN HCL 500 MG TABLET 1000 MG PO ×2 (08:54→17:32)
[2018-01-12] MEDS: hydroCHLOROthiazide 25 MG TABLET PO (08:54)
[2018-01-12] MEDS: INSULIN ASPART 100 UNIT/ML INSULN PEN SUBCUT ×2 (08:55→12:29)
[2018-01-12] MEDS: INSULIN GLARGINE 100 UNIT/ML 3ML PEN 30 UNIT SUBCUT (08:56)
--- NOTE | 2018-01-12 11:35 | OT.IP.TRT ---
Current Diagnoses Type 2 diabetes mellitus without complications (01/10/18) Spondylolisthesis, lumbosacral region (01/10/18) Other spondylosis with radiculopathy, lumbar region (01/10/18) Spinal stenosis, lumbar region without neurogenic claudication (01/10/18) Surgery Performed Operation Date: 01/10/18 07:45 Actual Procedures p L4-5 Left Hemilaminectomy, L5-S1 TLIF w/Posterior Instru. - Dameon Hlom MD Occupational Therapy Treatment Note M2 OT-IP Current Condition Start: 01/11/18 12:12 Freq: Status: Active Protocol: Document 01/11/18 PJM (Rec: 01/11/18 12:26 PJM [id number]) Occupational Therapy Current Condition Current Condition Evaluation Date 01/11/18 Post Operative Precautions Lumbar Precautions Log Roll No Twisting Limit Bending Lifting Restriction of 10 lbs Gait Belt above Incisional Area M3 OT- IP Subjective and Pain Start: 01/11/18 12:12 Freq: Status: Active Protocol: Document 01/12/18 11:35 PJM (Rec: 01/12/18 12:27 PJM [id number]) OT- Subjective Occupational Therapy Visit Type Type Treatment Note Visit Start Time 11:10 Visit Stop Time 11:35 Total Visit Minutes 25 Notes Pt's here at end of session Occupational Therapy Visit Comments Patient Comments Don't put that gait belt on me. I hate that thing! Patient/Caregiver Goals to go home OT Pain Assessment Pain When Pain Assessed After Treatment Pain Present Pain Present Pain Reported Location lower back Intensity 2 Scale Used Numeric (1 - 10) Description Aching Acute Pain Behaviors Guarding M4 OT- IP ADL's Start: 01/11/18 12:12 Freq: Status: Active Protocol: Document 01/12/18 11:35 PJM (Rec: 01/12/18 12:27 PJM [id number]) OT ADL-Grooming General Evaluation Grooming Ability Independent Areas Needing Assistance Face Washing Comments OT Grooming Comments standing at sink with FWW OT ADL-Oral Care General Eval Oral Care Ability Independent Comments Oral Care Comments using mouthwash standing at sink; pt has no teeth OT ADL-Dressing General Eval Upper Body Dressing Ability Independent Lower Body Dressing Ability Minimal Assistance Areas Needing Assistance Pull-Over Shirt Pants/Shorts Socks Shoes Comments OT Dressing Comments Pt requesting assist with socks today due to low frustration tolerance. has found skein bleacher and sock aid at home and pt knows how to use them or can assist PRN. Pt modified indep donning pants with skein bleacher after further education re: body mechanics. Pt indep donning slip on shoes. OT ADL-Toileting General Evaluation Toileting Ability Independent Comments OT Toileting Comments Standing for urination. Provided education re: body mechanics during pavan care, flushing and options for toilet paper aid. Pt declines toilet paper aid. OT ADL-Bathing Comments OT Bathing Comments Pt declined to shower here. Will use shower stall with seat, long bath sponge, HH shower hose at home and can assist PRN. Provided education re: body mechanics. M M6 OT- IP Functional Cognition Start: 01/11/18 12:12 Freq: Status: Active Protocol: Document 01/11/18 11:35 PJM (Rec: 01/11/18 12:26 PJM [id number]) Cognitive Comments Cognitive Assessment Comments Pt alert and oriented today. M7 OT- IP Mobility and Balance Start: 01/11/18 12:12 Freq: Status: Active Protocol: Document 01/12/18 12:14 PJM (Rec: 01/12/18 12:27 PJM [id number]) OT-Transfer Assessment Sit to and From Stand Sit to and from Stand Standby Assistance Transfers Transfer Ability Standby Assistance Technique Transfer Technique Stand Step Pivot Devices Transfer Assistive Devices Front Wheeled Walker Comments Mobility Comments Pt adamantly refuses gait belt for mobility. States he will sleep in recliner at home. Provided education re: log rolling as pt states he will eventually move to [place] bed at home. OT- Gait Assessment Gait Gait Assistance Required: Standby Assistance Distance (Feet) (feet) 25 Assistive Devices Assistive Device Front Wheeled Walker Comments Gait Ability Comments Pt SBA for gait. Pt denies any leg pain today and states my legs feel really good and strong today. No LOB noted this session. OT- Balance Assessment Sitting Balance and Reactions Static Sitting Balance Ability Normal Dynamic Sitting Balance Ability Normal Standing Balance and Reactions Static Standing Balance Ability Good Dynamic Standing Balance Ability Good Comments Other Balance Tests/Deviations/Treatment during lower body clothing : management M9 OT- IP Assessment and Plan Start: 01/11/18 12:12 Freq: Status: Active Protocol: Document 01/12/18 1135 MATTI (Rec: 01/12/18 12:27 MATTI [id number]) OT Summary Assessment and Plan Potential Rehabilitation Potential Good Summary OT Impairments Pain Progress Towards Goals Safe For Discharge Goals Met Assessment Summary Pt much more alert today with much improved pain control, functional mobility ans self care skills. All OT goals achieved for this admission and pt safe to d/c home with 24 hr assist from capable when medically stable and clears P.T. He has all necessary equipment. Frequency of Treatment Frequency Of Treatment Discharge Treatment Plan Other Treatment Recommendations and Next No further OT services needed. Treatment Focus Discharge Recommendations OT Discharge Recommendations Home with 24/7 Assist
[2018-01-12 11:45] VITALS: BP 135/66; PULSE 70; RESP 17; TEMP 36.6; O2SAT 95
--- NOTE | 2018-01-12 11:54 | PT.IPTN ---
Current Diagnoses Type 2 diabetes mellitus without complications (01/10/18) Spondylolisthesis, lumbosacral region (01/10/18) Other spondylosis with radiculopathy, lumbar region (01/10/18) Spinal stenosis, lumbar region without neurogenic claudication (01/10/18) Surgery Performed Operation Date: 01/10/18 07:45 Actual Procedures p L4-5 Left Hemilaminectomy, L5-S1 TLIF w/Posterior Instru. - Dameon Holm MD Physical Therapy Treatment Note M2 PT-IP Current Condition Start: 01/11/18 11:28 Freq: NEEDED Status: Active Protocol: Document 01/11/18 10:35 AB (Rec: 01/11/18 11:43 AB [id number]) Physical Therapy Current Condition Current Condition Evaluation Date 01/11/18 Treatment Diagnosis s/p L5S1 fusion and lami, L4- L5 L hemilaminectomy; difficulties in walking Onset Date 01/10/18 Precautions Lumbar Precautions Log Roll No Twisting Limit Bending Lifting Restriction of 10 lbs Gait Belt above Incisional Area M3 PT-IP Subjective Start: 01/11/18 11:28 Freq: NEEDED Status: Active Protocol: Document 01/12/18 11:54 AB (Rec: 01/12/18 12:55 AB [id number]) Subjective Physical Therapy Visit Type Type Treatment Note Visit Start Time 11:54 Visit Stop Time 12:05 Total Visit Minutes 11 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 Therapy Pain Assessment Pain When Pain Assessed At Rest Pain Present Pain Present Pain Reported Location lower back Intensity 4 Scale Used Numeric (1 - 10) Pain Management Techniques Timing of Activity with Medications M4 PT-IP Mobility and Gait Start: 01/11/18 11:28 Freq: NEEDED Status: Active Protocol: Document 01/12/18 11:54 AB (Rec: 01/12/18 12:55 AB [id number]) PT-Transfer Assessment Sit to and From Stand Sit to and from Stand Standby Assistance Equipment Transfer Assistive Device Gait Belt Front Wheeled Walker Orthotic/Prosthetic Devices or Brace: No Comments Mobility Comments pt stated that he will use his recliner to sleep on at home and does not want to do training with bed mobility. Gait Assessment Gait Gait Assistance Required: Standby Assistance Distance (Feet) (feet) 100 Able to Maintain Weight Bearing Status Yes During Gait Assistive Devices Assistive Device Gait Belt Front Wheeled Walker Orthotic/Prosthetic Devices or Brace: No Factors Limiting Gait Function Factors Limiting Gait Function Decreased Activity Tolerance Decreased Strength Pain Poor Balance Poor Safety Awareness Stair Climbing Assessment Evaluation Level of Assist On Stairs Standby Assistance Devices Stair Climbing Assistive Devices Left Railing Right Railing Technique/Endurance Stair Climbing Direction Ascend and Descend Stair Climbing Technique Step Over Step Number of Steps Climbed 3 Query Text: Stair Climbing Set # Repetitions (reps) 1 M5 PT-IP Objective Assessments Start: 01/11/18 11:28 Freq: NEEDED Status: Active Protocol: Document 01/11/18 10:35 AB (Rec: 01/11/18 11:43 AB [id number]) Orientation Orientation/Cognition Level of Alertness Alert Orientation Name Age Birthday Month Date Year Day of Week Place Situation Safety Awareness Understands Safety Issues Gross Range of Motion Lower Extremity ROM Assessment Within Functional Limits Strength Lower Extremity Strength Assessment Bilaterally Impaired Hip 3+/5 Knee 4-/5 M6 PT-IP Treatment Start: 01/11/18 11:28 Freq: NEEDED Status: Active Protocol: Document 01/12/18 11:54 AB (Rec: 01/12/18 12:55 AB [id number]) Physical Therapy Treatment Education Education Provided Precautions Safety M7 PT-IP Assessment and Plan Start: 01/11/18 11:28 Freq: NEEDED Status: Active Protocol: Document 01/12/18 11:54 AB (Rec: 01/12/18 12:55 AB [id number]) PT Summary Assessment and Plan Potential Rehabilitation Potential Good Summary Impairments Pain ROM Strength Balance Bed Mobility Transfers Gait Activity Tolerance Progress Towards Goals Progressing Toward Goals Assessment Summary pt is doing well with mobility and only requires SBA with transfers and ambulation. pt does not want to do bed mobility training and plans to sleep on his recliner at home . pt want to go home and spouse will be able to assist him at home. Goals Bed Mobility Goal Standby Assistance Transfer Goal Standby Assistance Gait Goal Standby Assistance Gait Distance 150 Other Goals up/down 2 steps with bilateral rails Frequency of Treatment Frequency Of Treatment Twice a Day Treatment Plan Physical Therapy Treatment Plan Bed Mobility Training Transfer Training Gait Training Therapeutic Exercise Balance Retraining Post Op Education Discharge Planning Hot or Cold Pack Neuromuscular Re-ed Coordination Retraining Manual Therapy Other Recommendations and Next Treatment ambulation Focus Recommendations To Nursing Amount of Assist Needed Standby Assistance Discharge Recommendations PT Discharge Recommendations Home with Assistance
[2018-01-12] MEDS: SODIUM CHLORIDE 0.9% FLUSH 10 ML IV (12:28)
--- NOTE | 2018-01-12 13:09 | CM.DANOTE ---
Per MD, pt making good progress and may be stable for d/c home today pending further PT. Per PT/OT, recommending safe d/c home with spouse to assist when medically stable. SW met bedside with pt and spouse and explained role and discussed d/c planning and currently pt and spouse feel comfortable with plan of d/c home later today. Pt denies any hx of HH or SNF and confirms that he is mostly Independent with ADL's at baseline although his increased numbness and feeling in his legs and feet prior to surgery made ambulation more difficult. 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 They do not anticipate any SW needs at d/c. Plan: SW to follow for likely pt d/c home later today or tomorrow if medically stable. CECILLE Saini Discharge Planning/Care Management CM Discharge Assessment Start: 01/11/18 15:28 Freq: Status: Active Protocol: Document 01/11/18 15:28 KJS (Rec: 01/11/18 15:33 KJS [id number]) Discharge Planning Assessment Assigned Automatic Operator CECILLE Gill Advance Directives? No Advance Directives on File No History Provided By Medical Record Has Patient been admitted in last 30 No days? Prior Living Arrangements House Household Members spouse Type of transporation used prior to Drives own vehicle admit Independent with ADL's Yes Is patient alert and oriented? Yes Caregiver for Another No Barriers to Discharge No Discharge Plan Home Whiteboard Updated in Patient Room with No name and ext. # of Automatic Operator Comment Reviewed chart. Patient is a 62yr old male admitted to [facility] for spinal surgery which was performed on 01-10-[address] Holm . Primary payor is [employer]. No PCP listed. Attempted to meet with patient today but therapy doing evaluation. Spoke with Xenia from OT and she reports that patient most likely d/c home tomorrow with supportive spouse. Therapy reports even if SNF recommened patient/ spouse would refuse. Review Status In Process Please Provide Date Initial DC 01/11/18 Assessment Was Performed Next Review Type Continued Stay Review Document 01/11/18 15:33 KJS (Rec: 01/11/18 15:33 KJS [id number]) Discharge Planning Assessment Advance Directives? No Advance Directives on File No History Provided By Patient Prior Living Arrangements House Household Members spouse Document 01/11/18 15:34 KJS (Rec: 01/11/18 15:35 KJS [id number]) Discharge Planning Assessment Assigned Automatic Operator CECILLE Gill Advance Directives? No Advance Directives on File No History Provided By Patient Has Patient been admitted in last 30 No days? Prior Living Arrangements House Household Members spouse Type of transporation used prior to Drives own vehicle admit Independent with ADL's Yes Is patient alert and oriented? Yes Caregiver for Another No Barriers to Discharge No Discharge Plan Home Whiteboard Updated in Patient Room with No name and ext. # of Automatic Operator Comment Reviewed chart. Patient is a 62yr old male admitted to . for spinal surgery which was performed on 01-10-[address] Holm . Primary payor is [employer]. No PCP listed. Attempted to meet with patient today but therapy doing evaluation. Spoke with Xenia from OT and she reports that patient most likely d/c home tomorrow with supportive spouse. Therapy reports even if SNF recommened patient/ spouse would refuse. Review Status In Process Please Provide Date Initial DC 01/11/18 Assessment Was Performed Next Review Type Continued Stay Review 01/11/18 15:34 CM Disc. Plan Continued by Andra Abraham DCP/Continued: Attempted to meet with patient 2x today. Patient has been with therapy both times PT/OT. Currently it is anticipated that patient will d/c home when medically stable. P: TOURS HOSTESS to follow up to determine if patient/spouse have any d/c planning needs prior to discharge. CECILLE Gill Initialized on 01/11/18 15:34 - END OF NOTE Document 01/12/18 13:09 BF (Rec: 01/12/18 13:09 BF [id number]) Discharge Planning Assessment Assigned Automatic Operator CECILLE Gill Advance Directives? No Advance Directives on File No History Provided By Patient Has Patient been admitted in last 30 No days? Prior Living Arrangements House Household Members spouse Type of transporation used prior to Drives own vehicle admit Independent with ADL's Yes Is patient alert and oriented? Yes Caregiver for Another No Barriers to Discharge No Discharge Plan Home Transportation Arrangement Spouse bedside and can provide transport Referrals Initiated None needed Whiteboard Updated in Patient Room with No name and ext. # of Automatic Operator Comment Reviewed chart. Patient is a 62yr old male admitted to . for spinal surgery which was performed on 01-10-[address] Holm . Primary payor is [employer]. No PCP listed. Attempted to meet with patient today but therapy doing evaluation. Spoke with Xenia from OT and she reports that patient most likely d/c home tomorrow with supportive spouse. Therapy reports even if SNF recommened patient/ spouse would refuse. Review Status In Process Please Provide Date Initial DC 01/11/18 Assessment Was Performed Next Review Type Continued Stay Review
--- NOTE | 2018-01-12 14:55 | PT.IPTN ---
Current Diagnoses Type 2 diabetes mellitus without complications (01/10/18) Spondylolisthesis, lumbosacral region (01/10/18) Other spondylosis with radiculopathy, lumbar region (01/10/18) Spinal stenosis, lumbar region without neurogenic claudication (01/10/18) Surgery Performed Operation Date: 01/10/18 07:45 Actual Procedures p L4-5 Left Hemilaminectomy, L5-S1 TLIF w/Posterior Instru. - Dameon Holm MD Physical Therapy Treatment Note M2 PT-IP Current Condition Start: 01/11/18 11:28 Freq: NEEDED Status: Active Protocol: Document 01/11/18 10:35 AB (Rec: 01/11/18 11:43 AB [id number]) Physical Therapy Current Condition Current Condition Evaluation Date 01/11/18 Treatment Diagnosis s/p L5S1 fusion and lami, L4- L5 L hemilaminectomy; difficulties in walking Onset Date 01/10/18 Precautions Lumbar Precautions Log Roll No Twisting Limit Bending Lifting Restriction of 10 lbs Gait Belt above Incisional Area M3 PT-IP Subjective Start: 01/11/18 11:28 Freq: NEEDED Status: Active Protocol: Document 01/12/18 14:55 GGD (Rec: 01/12/18 16:36 GGD [id number]) Subjective Physical Therapy Visit Type Type Treatment Note Visit Start Time 14:30 Visit Stop Time 14:55 Total Visit Minutes 25 Number of NURSING CONSULTANT Visits 1 Physical Therapy Visit Comments Patient Comments Pt states that he feeling better. Therapy Pain Assessment Pain When Pain Assessed At Rest Pain Present Pain Present Pain Reported Location lower back Intensity 4 Scale Used Numeric (1 - 10) Pain Management Techniques Modification of Treatment M4 PT-IP Mobility and Gait Start: 01/11/18 11:28 Freq: NEEDED Status: Active Protocol: Document 01/12/18 14:55 GGD (Rec: 01/12/18 16:36 GGD [id number]) PT-Transfer Assessment Sit to and From Stand Sit to and from Stand Standby Assistance Equipment Transfer Assistive Device Gait Belt Front Wheeled Walker Orthotic/Prosthetic Devices or Brace: No Comments Mobility Comments pt stated that he will use his recliner to sleep on at home. Gait Assessment Gait Gait Assistance Required: Standby Assistance Distance (Feet) (feet) 200 Assistive Devices Assistive Device Gait Belt Front Wheeled Walker Gait Deviations General Gait Pattern Antalgic Factors Limiting Gait Function Factors Limiting Gait Function Decreased Activity Tolerance Decreased Strength Pain Stair Climbing Assessment Evaluation Level of Assist On Stairs Standby Assistance Devices Stair Climbing Assistive Devices Left Railing Right Railing Technique/Endurance Stair Climbing Direction Ascend and Descend Stair Climbing Technique Step Over Step Number of Steps Climbed 3 Query Text: Stair Climbing Set # Repetitions (reps) 1 M5 PT-IP Objective Assessments Start: 01/11/18 11:28 Freq: NEEDED Status: Active Protocol: Document 01/11/18 10:35 AB (Rec: 01/11/18 11:43 AB [id number]) Orientation Orientation/Cognition Level of Alertness Alert Orientation Name Age Birthday Month Date Year Day of Week Place Situation Safety Awareness Understands Safety Issues Gross Range of Motion Lower Extremity ROM Assessment Within Functional Limits Strength Lower Extremity Strength Assessment Bilaterally Impaired Hip 3+/5 Knee 4-/5 M6 PT-IP Treatment Start: 01/11/18 11:28 Freq: NEEDED Status: Active Protocol: Document 01/12/18 14:55 GGD (Rec: 01/12/18 16:36 GGD [id number]) Physical Therapy Treatment Education Education Provided Precautions Safety M7 PT-IP Assessment and Plan Start: 01/11/18 11:28 Freq: NEEDED Status: Active Protocol: Document 01/12/18 14:55 GGD (Rec: 01/12/18 16:36 GGD [id number]) PT Summary Assessment and Plan Summary Assessment Summary Pt improving with mobility. He needs SBA for mobility. He states fang he will sleep in chair and refused bed mobility . Frequency of Treatment Frequency Of Treatment Twice a Day Recommendations To Nursing Amount of Assist Needed Standby Assistance Discharge Recommendations PT Discharge Recommendations Home with Assistance
[2018-01-12 15:55] VITALS: BP 130/64; PULSE 76; RESP 16; TEMP 36.5; O2SAT 96
--- NOTE | 2018-01-12 17:53 | P.DS_ITS ---
History of Present Illness Date Patient Seen: 01/12/18 Time Patient Seen: 17:40 Chief complaint: L4-5 left hemilainectomy L5-S1 TLIF Narrative: Patient has been having chronic back pain and worsening lumbar radiculopathy. Patient failed multiple conservative management with worsening pain weakness and numbness in her lower extremity. Patient has been having difficulty performing activity of daily living. After discussing risks benefits of treatment options, patient elected proceed with surgery. Discharge Providers Date of admission: 01/10/18 06:15 Consults: 01/10/18 12:25 Consult to Occupational Therapy Evaluate & Treat Comment: Physician Instructions: Evaluate and treat Consult to Physical Therapy Evaluate & Treat Comment: Physician Instructions: Evaluate and Treat Discharge provider: Myrna Sahu PA-C Summary Discharge Diagnosis: 1. L5-S1 spondylolisthesis 2. L4-5, L5-S1 spinal stenosis 3. L4-5, L5-S1 spondylosis with radiculopathy Hospital Course: Patient admitted to hospital for the above mentioned procedure. Patient tolerated procedure well. Pain is well controlled. Patient was seen by physical therapy who recommended that he be discharged home with outpatient PT. Patient is home to assist him. Patient is ready to go home and is safe to do so. Status at Discharge Functional status at discharge: uses cane/walker Overall status at discharge: patient is progressing back to baseline Time Spent with Patient Less than 30 minutes Exam Vital Signs (past 8 hours): - 01/12/18 11:45 01/12/18 15:55 Temperature 97.8 F 97.7 F Pulse Rate 70 76 Respiratory Rate 17 16 Blood Pressure 135/66 130/64 Pulse Oximetry 95 96 Oxygen Delivery Method Room Air Oxygen Flow Rate 0 Narrative Exam Narrative: Patient is AOx3. Patient is sitting bedside. Patient is sitting upright in chair comfortably. He appears to be in no acute distress. Patient lumbar dressing is intact with minimal drainage. Dorsalis pedis and radial pulses are 2+ and symmetric. Sensation to LE intact with light touch bilaterally. 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 No neurological deficit noted. Calfs are soft, non tender and compressible. Mild swelling noted on R ankle. Discharge Plan Discharge Plan Patient Disposition: Home Discharge comment: Discharge home. Discharge Med Rec/Prescriptions Prescriptions: New oxycodone 5 mg Tablet 10 mg PO Q3HR PRN (Reason: Pain, Severe (7-10)) Qty: 50 RF: 0 Continue metformin 1,000 mg Tablet 1,000 mg PO BID RF: 0 hydrochlorothiazide 25 mg Tablet 25 mg PO DAILY RF: 0 glipizide 5 mg Tablet 5 mg PO BID RF: 0 insulin glargine [Lantus U-100 Insulin] 100 unit/mL Solution 30 unit SUBCUT BID RF: 0 lovastatin 40 mg Tablet 40 mg PO DAILY RF: 0 furosemide 20 mg Tablet 20 mg PO DAILY RF: 0 aspirin 81 mg Tablet,Delayed Release (Dr/Ec) 81 mg PO DAILY RF: 0 Provider Discharge Instructions Diet: Carb-consistent/Diabetic Activity: Limit bending, lifting and twisting. Cold/Heat Therapy: cold compress PRN Other treatments: Take aspirin 81mg twice a day for DVT prophylaxis Skin/Wound/Dressing Care Report to your healthcare provider any signs of infection, such as:: chills, fever, night sweats, increased pain and unusual drainage Dressing: keep dry and clean. Visit Report/Discharge Packet Instructions: Oxycodone DI for Transforaminal Lumbar Interbody Fusion Visit Report Forms: Stroke Signs & Symptoms Discharge Data Attending Provider: Dameon Holm Admit Date/Time: 01/10/18 06:15 Quality VTE Deep Vein Thrombosis/Pulmonary Embolism Present on Admission: No
--- NOTE | 2018-01-12 18:27 | PC.NURSE ---
DISCHARGE Received pt sitting up in chair, dressed and awaiting d/c home. A&Ox3, pleasant and cooperative with care. slight swelling to BLE but pt states it has improved. Pt states no BM since Wednesday but states not feeling constipated and declined prune juice/butter concoction. lower back dressing CDI. d/c instructions reviewed with pt's per pt's request. prescriptions given. pt off unit at approximately 1805 via wheelchair with TRUCK CLEANER escort.
--- NOTE | 2018-01-27 15:00 | CM.DPNOTE ---
Faxed DC summary to [facility] per request F# [phone] Ref # [id number] JW
== END 2018-01-12 18:05 | disposition home or self-care (01) | DRG 304 ==
LOC: AC 06:29 → ICU 06:47 → AC 01-11 17:07
PROVIDERS: Admitting Provider Orthopaedic Surgery Orthopaedic Surgery of the Spine; Visit Provider Orthopaedic Surgery Orthopaedic Surgery of the Spine
PROC: 0SG30AJ Fusion of Lumbosacral Joint with Interbody Fusion Device, Posterior Approach, Anterior Column, Open Approach (ICD-10-PCS; principal; 2018-01-10 07:45)
DX: M48.061 Spinal stenosis, lumbar region without neurogenic claudication (principal); M43.17 Spondylolisthesis, lumbosacral region; M47.26 Other spondylosis with radiculopathy, lumbar region; R60.9 Edema, unspecified; G47.33 Obstructive sleep apnea (adult) (pediatric); E66.01 Morbid (severe) obesity due to excess calories; I10 Essential (primary) hypertension; E78.5 Hyperlipidemia, unspecified; E11.9 Type 2 diabetes mellitus without complications; F17.210 Nicotine dependence, cigarettes, uncomplicated; Z68.39 Body mass index [BMI] 39.0-39.9, adult; Z79.84 Long term (current) use of oral hypoglycemic drugs; M48.07 Spinal stenosis, lumbosacral region; M47.27 Other spondylosis with radiculopathy, lumbosacral region
CPT/HCPCS: 72100; 76001; 82962; 87797; 97116; 97162; 97165; 97530; 97535; C1776; C9290; J0131; J0690; J1100; J2405; J2704; J3010